=== PATIENT | female | born 1980 | race Caucasian/White ===

== ENCOUNTER 2020-01-14 16:11 | Inpatient (IN) | payer OTHER ==
[~2020-01-14] VITALS: Ht 170.2 cm; Wt 113.5 kg
[2020-01-14] MEDS ORDERED: MAALOX/HYOSCYAMINE/LIDOCAINE 45 ML BTL ONE (16:45)
[2020-01-14] MEDS ORDERED: ONDANSETRON 2MG/ML, 2ML ONE (16:45)
--- NOTE | 2020-01-14 16:55 | NUR ---
PT HERE WITH C/O N/V X2 DAYS, PT UNABLE TO KEEP FLUIDS DOWN. PT DENIES URINARY SYMPTOMS OR ABD PAIN, DESCRIBES STOMACH "FULL"
[2020-01-14] MEDS ORDERED: MAALOX/HYOSCYAMINE/LIDOCAINE 45 ML BTL PO ONE (17:00)
[2020-01-14] MEDS ORDERED: FAMOTIDINE 20 MG/2 ML IV ONE (17:00)
[2020-01-14] MEDS ORDERED: SODIUM CHLORIDE FLUSH 10ML SYR IVF ONE (17:00)
[2020-01-14] MEDS ORDERED: SODIUM CHLORIDE 0.9% 1,000ML IVBOLUS ONE (17:00)
[2020-01-14] MEDS ORDERED: ONDANSETRON 2MG/ML, 2ML IVPush ONE (17:00)
[2020-01-14 17:30] LABS: BASOPHILS % (AUTO) 0 % (0-1); EOSINOPHILS # (AUTO) 0.01 x10^3/uL (0-0.4); EOSINOPHILS % (AUTO) 0 % (1-7); LYMPHOCYTES # (AUTO) 1.16 x10^3/uL (1-3.4); LYMPHOCYTES % (AUTO) 9 % (22-44); MD NO; MEAN CORPUSCULAR HEMOGLOBIN 31.1 pg (27.0-34.8); MEAN CORPUSCULAR HGB CONC 33.4 g/dL (32.4-35.8); MEAN PLATELET VOLUME 7.3 fL (7.4-10.4); MONOCYTES # (AUTO) 0.44 x10^3/uL (0.2-0.8); MONOCYTES % (AUTO) 4 % (2-9); NEUTROPHILS # (AUTO) 10.79 x10^3/uL (1.8-6.8); NEUTROPHILS % (AUTO) 87 % (42-75); PLATELET COUNT 336 x10^3/uL (130-400); RED BLOOD COUNT 4.55 x10^6/uL (3.82-5.3); RED CELL DISTRIBUTION WIDTH 12.7 % (9.6-15.2)
[2020-01-14 17:41] LABS: ALBUMIN 3.6 g/dL (3.4-5.0); ANION GAP 7 mmol/L (5-15); CALCIUM 8.9 mg/dL (8.5-10.1); CHLORIDE 109 mmol/L (98-107)
[2020-01-14 17:49] LABS: ALKALINE PHOSPHATASE 211 U/L (45-117); BILIRUBIN,TOTAL 5.4 mg/dL (0.2-1.0); CREATININE 0.88 mg/dL (0.55-1.02); TOTAL PROTEIN 7.7 g/dL (6.4-8.2)
[2020-01-14 17:51] LABS: ALANINE AMINOTRANSFERASE 1707 U/L (12-78)
--- NOTE | 2020-01-14 18:10 | NUR ---
Drew cardoza in ED - 01/14/20 at 1811 by STEFFI PT LAB UPDATED ON POC. PT TO BE ADMITTED.
--- NOTE | 2020-01-14 18:12 | NUR ---
PT RESTING ON ABELARDO, VSS. UPDATED ON PO, PT TO BE ADMITTED
[2020-01-14] MEDS ORDERED: PROMETHAZINE 25 MG/ML, 1ML ONE (18:24)
[2020-01-14] MEDS ORDERED: PROMETHAZINE 25 MG/ML, 1ML IM ONE (18:30)
[2020-01-14] MEDS ORDERED: MORPHINE SULFATE 4 MG/ML, 1ML IVPush PRN (18:30)
[2020-01-14] MEDS ORDERED: LACTATED RINGERS 1,000 ML IVBOLUS ONE (19:00)
--- NOTE | 2020-01-14 19:12 | NUR ---
Report received from NICOLE Rodriguez. This RN to assume care. Hospitalist in room. MRI checklist completed and given directly to RAD.
--- NOTE | 2020-01-14 19:14 | NUR ---
Note sony in EDM - 01/14/20 at 1915 by [email or web address] Report received from NICOLE Montez. This RN to assume care. Patient states she spoke with ERP and she's ready to go home. Patient to be discharged.
[2020-01-14] MEDS ORDERED: LORazepam 2 MG/ML, 1ML ONE (19:17)
[2020-01-14] MEDS ORDERED: MORPHINE SULFATE 4 MG/ML, 1ML ONE (19:17)
[2020-01-14] MEDS ORDERED: LORazepam 2 MG/ML, 1ML IVPush ONE (19:30)
[2020-01-14] MEDS ORDERED: LORazepam 2 MG/ML, 1ML IVPush PRN (19:30)
--- NOTE | 2020-01-14 20:09 | NUR ---
Report given to NICOLE Devi. Patient to be transferred to room 339 once back from MRI.
--- NOTE | 2020-01-14 20:11 | NUR ---
Ativan delayed until business technology professor called in. Morphine admin prior to MRI for pain. Patient already in MRI when Ativan was to be offered. Non-admin.
[2020-01-14] MEDS ORDERED: CYCLOBENZAPRINE 10 MG TABLET PO PRN (20:30)
[2020-01-14] MEDS ORDERED: SUMATRIPTAN 50 MG TABLET PO PRN (20:30)
[2020-01-14] MEDS ORDERED: HYDROmorphone 2 MG/ML, 1ML IVPush PRN (20:30)
[2020-01-14] MEDS ORDERED: ONDANSETRON ODT 4 MG PO PRN (20:30)
[2020-01-14] MEDS ORDERED: ONDANSETRON 2MG/ML, 2ML IVPush PRN (20:30)
[2020-01-14 20:45] VITALS: BP 136/93
[2020-01-14] MEDS: FAMOTIDINE 20 MG/2 ML IVPush SCH (21:07)
[2020-01-14] MEDS: KETOROLAC 30 MG/1 ML IV PRN (21:20)
[2020-01-14] MEDS: LACTATED RINGERS 1,000 ML IV SCH (21:54)
[2020-01-15 00:26] VITALS: BP 118/74
[2020-01-15] MEDS: LACTATED RINGERS 1,000 ML IV SCH ×6 (01:36→21:05)
[2020-01-15 08:00] VITALS: BP 146/89
[2020-01-15 08:17] LABS: HCT (SEDRATE) 38.6 % (34.6-47.8)
[2020-01-15 08:21] LABS: MEAN CORPUSCULAR HEMOGLOBIN 31.3 pg (27.0-34.8); MEAN CORPUSCULAR HGB CONC 33.6 g/dL (32.4-35.8); MEAN CORPUSCULAR VOLUME 93.3 fL (80-100); MEAN PLATELET VOLUME 7.1 fL (7.4-10.4); PLATELET COUNT 331 x10^3/uL (130-400); RED BLOOD COUNT 4.09 x10^6/uL (3.82-5.3); RED CELL DISTRIBUTION WIDTH 12.6 % (9.6-15.2)
[2020-01-15 08:28] LABS: ALBUMIN 3.1 g/dL (3.4-5.0); ANION GAP 7 mmol/L (5-15); CALCIUM 8.4 mg/dL (8.5-10.1); CHLORIDE 112 mmol/L (98-107)
[2020-01-15] MEDS: SERTRALINE 100MG TABLET PO SCH (08:34)
[2020-01-15] MEDS: FAMOTIDINE 20 MG/2 ML IVPush SCH (08:34)
[2020-01-15 08:35] LABS: ALKALINE PHOSPHATASE 165 U/L (45-117); BILIRUBIN,TOTAL 1.5 mg/dL (0.2-1.0); GAMMA GLUTAMYL TRANSPEPTIDASE 1223 U/L (5-55); TOTAL PROTEIN 6.7 g/dL (6.4-8.2)
[2020-01-15 08:37] LABS: ALANINE AMINOTRANSFERASE 1187 U/L (12-78)
[2020-01-15 09:03] LABS: BASOPHILS # (AUTO) 0.02 x10^3/uL (0-0.1); BASOPHILS % (AUTO) 0 % (0-1); EOSINOPHILS # (AUTO) 0.01 x10^3/uL (0-0.4); EOSINOPHILS % (AUTO) 0 % (1-7); LYMPHOCYTES # (AUTO) 2.15 x10^3/uL (1-3.4); LYMPHOCYTES % (AUTO) 30 % (22-44); MD SCAN; MONOCYTES # (AUTO) 0.37 x10^3/uL (0.2-0.8); MONOCYTES % (AUTO) 5 % (2-9); NEUTROPHILS # (AUTO) 4.53 x10^3/uL (1.8-6.8); NEUTROPHILS % (AUTO) 64 % (42-75)
[2020-01-15] MEDS: KETOROLAC 30 MG/1 ML IV PRN ×2 (12:02→20:01)
[2020-01-15 12:56] VITALS: BP 137/89
[2020-01-15 20:06] VITALS: BP 149/105
[2020-01-15] MEDS: FAMOTIDINE 20 MG TABLET PO SCH (20:13)
[2020-01-16] MEDS: LACTATED RINGERS 1,000 ML IV SCH ×4 (01:04→11:10)
[2020-01-16 01:05] VITALS: BP 141/92
[2020-01-16] MEDS: KETOROLAC 30 MG/1 ML IV PRN (03:51)
[2020-01-16 05:53] LABS: BASOPHILS # (AUTO) 0.03 x10^3/uL (0-0.1); BASOPHILS % (AUTO) 0 % (0-1); EOSINOPHILS # (AUTO) 0.03 x10^3/uL (0-0.4); EOSINOPHILS % (AUTO) 0 % (1-7); LYMPHOCYTES # (AUTO) 2.56 x10^3/uL (1-3.4); LYMPHOCYTES % (AUTO) 36 % (22-44); MD NO; MEAN CORPUSCULAR HEMOGLOBIN 31.1 pg (27.0-34.8); MEAN CORPUSCULAR HGB CONC 33.5 g/dL (32.4-35.8); MEAN CORPUSCULAR VOLUME 92.8 fL (80-100); MEAN PLATELET VOLUME 7.2 fL (7.4-10.4); MONOCYTES # (AUTO) 0.44 x10^3/uL (0.2-0.8); MONOCYTES % (AUTO) 6 % (2-9); NEUTROPHILS # (AUTO) 4.16 x10^3/uL (1.8-6.8); NEUTROPHILS % (AUTO) 58 % (42-75); PLATELET COUNT 283 x10^3/uL (130-400); RED BLOOD COUNT 3.72 x10^6/uL (3.82-5.3); RED CELL DISTRIBUTION WIDTH 13.1 % (9.6-15.2)
[2020-01-16 06:02] LABS: ALBUMIN 2.9 g/dL (3.4-5.0); ANION GAP 4 mmol/L (5-15); CALCIUM 8.5 mg/dL (8.5-10.1); CHLORIDE 108 mmol/L (98-107)
[2020-01-16 06:07] LABS: ALANINE AMINOTRANSFERASE 735 U/L (12-78); ALKALINE PHOSPHATASE 124 U/L (45-117); BILIRUBIN,TOTAL 0.9 mg/dL (0.2-1.0); CREATININE 0.55 mg/dL (0.55-1.02); TOTAL PROTEIN 6.3 g/dL (6.4-8.2)
[2020-01-16] MEDS: SODIUM CHLORIDE 0.9% 1,000 ML IV SCH ×2 (06:37→12:40)
[2020-01-16 06:56] VITALS: BP 140/92
[2020-01-16] MEDS: SERTRALINE 100MG TABLET PO SCH (08:59)
[2020-01-16] MEDS: FAMOTIDINE 20 MG TABLET PO SCH (08:59)
[2020-01-16 13:34] VITALS: BP 148/103
[2020-01-16] MEDS ORDERED: FLU VACC QS2019-20 36MOS UP/PF 0.5 ML IM-VACC ONE (14:00)
== END 2020-01-16 14:26 | disposition home or self-care (01) | DRG 439 ==
LOC: ED 19:35 → EDIP 20:04 → 3N 20:45
PROVIDERS: ADMIT Family Medicine; ATTEND Family Medicine
DX: K85.10 Biliary acute pancreatitis without necrosis or infection (principal); E87.2 Acidosis; G47.10 Hypersomnia, unspecified; K80.20 Calculus of gallbladder without cholecystitis without obstruction; N97.9 Female infertility, unspecified; Z82.49 Family history of ischemic heart disease and other diseases of the circulatory system; Z86.19 Personal history of other infectious and parasitic diseases; Z88.5 Allergy status to narcotic agent
CPT/HCPCS: 36415; 96361; 96372; 96374; 99285; J3490; 74181; 76700; 80053; 80074; 80307; 82977; 83605; 83690; 83735; 84703; 85025; 85651; 86140; 90686; 93005; G0378; J1885; J2405; J2550; J2270; J7030; J7120

== ENCOUNTER 2020-03-11 09:44 | Outpatient (CLI) | payer OTHER ==
[2020-03-11] MEDS ORDERED: CYCL5TAB PO (11:43)
[2020-03-11] MEDS ORDERED: SERT100T32 PO (11:43)
[2020-03-11] MEDS ORDERED: IBUP200T64 PO (11:43)
[2020-03-11] MEDS ORDERED: ACET-1600 PO (11:43)
[2020-03-11] MEDS ORDERED: SUMA50TA4 PO (11:43)
== END 2020-03-11 23:59 | disposition home or self-care (01) ==
LOC: STAR 09:44
PROVIDERS: ATTEND Surgery
DX: Z02.9 Encounter for administrative examinations, unspecified (principal)
CPT/HCPCS: C9803-CS; U0001-CS

== ENCOUNTER 2020-03-15 06:22 | Day surgery (SDC) | payer OTHER ==
[~2020-03-15] VITALS: Ht 170.2 cm; Wt 107.0 kg
[~2020-03-15 06:22] MED LIST: ACET-1600 PO; CYCL5TAB PO; IBUP200T64 PO; SERT100T32 PO; SUMA50TA4 PO
[2020-03-15] MEDS ORDERED: BUPIVACAINE/PF-EPI 0.5% 1:200K ONE (06:48)
[2020-03-15] MEDS ORDERED: LACTATED RINGERS 1,000 ML IV SCH (08:24)
[2020-03-15 08:25] VITALS: BP 142/95
[2020-03-15] MEDS ORDERED: CHLORHEXIDINE 15 ML UDC MM ONE (08:30)
[2020-03-15] MEDS ORDERED: CHLORHEXIDINE 15 ML UDC ONE (08:31)
[2020-03-15] MEDS ORDERED: PROMETHAZINE 25 MG/ML, 1ML IVPush PRN (09:00)
[2020-03-15] MEDS ORDERED: OXYcodone 5 MG/5 ML ORAL.SOL UDC PO PRN (09:00)
[2020-03-15] MEDS ORDERED: FENTANYL PF 250 MCG/5ML ONE (09:02)
[2020-03-15] MEDS ORDERED: MIDAZOLAM 1 MG/ML, 2ML ONE (09:02)
[2020-03-15] MEDS ORDERED: FAMOTIDINE 20 MG TABLET ONE (09:07)
[2020-03-15] MEDS ORDERED: OXYcodone IR 5MG TABLET ONE (09:08)
[2020-03-15] MEDS ORDERED: ACETAMINOPHEN 500 MG TABLET ONE (09:08)
[2020-03-15] MEDS ORDERED: ACETAMINOPHEN 500 MG TABLET PO ONE (09:30)
[2020-03-15] MEDS ORDERED: OXYcodone IR 5MG TABLET PO ONE (09:30)
[2020-03-15] MEDS ORDERED: FAMOTIDINE 20 MG TABLET PO ONE (09:30)
[2020-03-15] MEDS ORDERED: CEFAZOLIN 1,000 MG ONE (09:34)
[2020-03-15] MEDS ORDERED: KETOROLAC 30 MG/1 ML ONE (09:34)
[2020-03-15] MEDS ORDERED: DEXAMETHASONE 4 MG/ML, 1ML ONE ×2 (09:56→09:57)
[2020-03-15] MEDS ORDERED: PROPOFOL 10 MG/ML, 20ML ONE ×2 (09:56)
[2020-03-15] MEDS ORDERED: ONDANSETRON 2MG/ML, 2ML ONE (09:56)
[2020-03-15] MEDS ORDERED: ROCURONIUM 10MG/ML,5ML ONE (09:56)
[2020-03-15] MEDS ORDERED: SUGAMMADEX 200 MG/2 ML IVPush ONE ×2 (09:57→11:05)
[2020-03-15] MEDS ORDERED: PHENYLEPHRINE 10 MG/ML ONE (09:57)
[2020-03-15] MEDS ORDERED: SUCCINYLCHOLINE 20 MG/ML, 10ML ONE (09:57)
[2020-03-15] MEDS ORDERED: HYDROmorphone 1 MG/ML, 1ML INJ ONE ×2 (10:16→11:23)
[2020-03-15] MEDS ORDERED: FENTANYL PF 100 MCG/2ML ONE (10:16)
[2020-03-15] MEDS: FENTANYL PF 100 MCG/2ML IV PRN ×2 (10:18→10:33)
[2020-03-15] MEDS: HYDROmorphone 1 MG/ML, 1ML INJ IV PRN ×3 (10:26→11:29)
[2020-03-15] MEDS ORDERED: OXYcodone 5 MG/5 ML ORAL.SOL UDC ONE (10:37)
[2020-03-15] MEDS ORDERED: hydrALAzine 20 MG/ML, 1ML ONE (11:23)
[2020-03-15] MEDS ORDERED: hydrALAzine 20 MG/ML, 1ML IV PRN (11:30)
== END 2020-03-15 13:30 | disposition home or self-care (01) ==
LOC: OUT 06:22
PROVIDERS: ATTEND Surgery
DX: K80.10 Calculus of gallbladder with chronic cholecystitis without obstruction (principal); G43.909 Migraine, unspecified, not intractable, without status migrainosus; F41.9 Anxiety disorder, unspecified; F32.9 Major depressive disorder, single episode, unspecified; Z79.899 Other long term (current) drug therapy; Z98.890 Other specified postprocedural states; Z81.1 Family history of alcohol abuse and dependence; Z82.49 Family history of ischemic heart disease and other diseases of the circulatory system; Z83.79 Family history of other diseases of the digestive system
CPT/HCPCS: 47562; 81025; 88304; J0330; J0360; J0690; J1100; J1170; J1885; J2250; J2370; J2405; J2704; J3010; J7120